=== PATIENT | female | born 1965 | race Caucasian/White ===

== ENCOUNTER 2016-03-05 15:34 | Emergency (ER) | payer OTHER ==
[~2016-03-05] VITALS: Ht 162.6 cm; Wt 70.0 kg
[~2016-03-05 15:34] MED LIST: CEPH500C3 PO; CLIN1CAP6 PO; DEPA500T3 PO; LEVA500T PO; TRAZ100T4 PO
[2016-03-05 15:36] VITALS: BP 190/90; PULSE 91; RESP 14; TEMP 97.9; O2SAT 99
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
[2016-03-06] MEDS ORDERED: ROBA500T PO (17:40)
[2016-03-06] MEDS ORDERED: NAPR500T PO (17:40)
== END 2016-03-05 18:25 | disposition left against medical advice (07) ==
LOC: NETRI 15:34
DX: M25.551 Pain in right hip (principal); E78.00 Pure hypercholesterolemia, unspecified; J44.9 Chronic obstructive pulmonary disease, unspecified; I10 Essential (primary) hypertension
CPT/HCPCS: 99283

== ENCOUNTER 2016-03-06 13:37 | Emergency (ER) | payer OTHER ==
[~2016-03-06] VITALS: Ht 162.6 cm; Wt 70.5 kg
[2016-03-06 13:40] VITALS: BP 145/87; PULSE 80; RESP 16; TEMP 98.1; O2SAT 96
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
--- NOTE | 2016-03-06 14:52 | RADRPT ---
EXAM DATE/TIME: 03/06/2016 14:42 [facility] COMPARISON: CT ABDOMEN & PELVIS W/O CONTRAST, June 18, 2014, 11:29. INDICATIONS : Right hip pain after she stepped in a hole. MEDICAL HISTORY : None. SURGICAL HISTORY : None. ENCOUNTER: Initial ACUITY: 4 - 6 days PAIN SCORE: 6/10 LOCATION: Right Hip. FINDINGS: Examination of the right hip was performed with AP Pelvis. The primary and secondary trabecular jesus ashley of the femoral neck is intact. The hip joint is of normal width without significant sclerosis or bony hypertrophy. The acetabulum is grossly intact. There are stable post traumatic changes involvi ng the left inferior pubic ramus at the site of old fracture. CONCLUSION: No evidence of right hip pathology.. Piedad Roberts MD on March 06, 2016 at 14:49 Board Certified Radiologist. This report was verified electronically.
[2016-03-06 14:56] LABS: BLOOD, URINE NEG (NEG); COMMENT (UR) CULT NOT INDICATED; CULTURE IF INDICATED CULT NOT INDICATED; GLUCOSE,URINE NEG (NEG); KETONE, URINE NEG (NEG); MUCUS URINE FEW /lpf (OCC); NITRITE,URINE NEG (NEG); PH, URINE 5.5 (5.0-8.5); SQUAMOUS EPITHELIAL CELL URINE 4 /hpf (0-5); URINE COLOR YELLOW (YELLW/STRAW)
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
[2016-03-06] MEDS ORDERED: ROBA500T PO (17:40)
[2016-03-06] MEDS ORDERED: NAPR500T PO (17:40)
[2016-03-06] MEDS ORDERED: KETOROLAC TROMETHAMINE 60 MG/2 ML (IM) VIAL IM ONE (17:45)
[2016-03-06] MEDS ORDERED: ORPHENADRINE INJ 60 MG/2 ML AMP IM ONE (17:45)
== END 2016-03-06 18:36 | disposition home or self-care (01) ==
LOC: NEPB 13:37
DX: M25.551 Pain in right hip (principal); F31.9 Bipolar disorder, unspecified; M46.96 Unspecified inflammatory spondylopathy, lumbar region; F41.8 Other specified anxiety disorders; E78.00 Pure hypercholesterolemia, unspecified; J44.9 Chronic obstructive pulmonary disease, unspecified; I10 Essential (primary) hypertension; W18.42XA Slipping, tripping and stumbling without falling due to stepping into hole or opening, initial encounter; Y93.9 Activity, unspecified; Y99.9 Unspecified external cause status
CPT/HCPCS: 73502; 81001; 96372; 99283; J1885; J2360

== ENCOUNTER 2016-07-31 17:23 | Emergency (ER) | payer OTHER ==
[~2016-07-31] VITALS: Ht 165.1 cm; Wt 68.0 kg
[~2016-07-31 17:23] MED LIST changes: -CEPH500C3 PO; -CLIN1CAP6 PO; -DEPA500T3 PO; -LEVA500T PO; +NAPR500T PO; +ROBA500T PO; -TRAZ100T4 PO
[2016-07-31 17:25] VITALS: BP 170/85; PULSE 124; RESP 20; TEMP 97.5; O2SAT 98
[2016-07-31] MEDS ORDERED: DICL75TA PO (19:34)
[2016-07-31] MEDS ORDERED: ROBA500T PO (19:34)
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
[2016-07-31] MEDS ORDERED: NAPROXEN 500 MG TAB PO ONE (19:45)
[2016-07-31] MEDS ORDERED: CYCLOBENZAPRINE HCL 10 MG TAB PO ONE (19:45)
== END 2016-07-31 20:11 | disposition home or self-care (01) ==
LOC: NEPK 17:23
DX: M54.2 Cervicalgia (principal); V49.9XXA Car occupant (driver) (passenger) injured in unspecified traffic accident, initial encounter; Y92.488 Other paved roadways as the place of occurrence of the external cause
CPT/HCPCS: 99284

== ENCOUNTER 2016-11-17 18:39 | Observation (INO) | payer BC, OTHER ==
[~2016-11-17 18:39] MED LIST changes: +DICL75TA PO
[2016-11-17 18:42] VITALS: BP 209/97; PULSE 58; RESP 15; O2SAT 98
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
[2016-11-17] MEDS ORDERED: MORPHINE SULFATE 4 MG/ML INJ IV PUSH ONE (19:30)
[2016-11-17] MEDS ORDERED: SODIUM CHLORIDE 0.9% FLUSH 10 ML FLUSH IVF PRN (19:30)
[2016-11-17] MEDS ORDERED: ONDANSETRON HCL 4 MG/2 ML VIAL IV PUSH ONE (19:30)
[2016-11-17] MEDS ORDERED: ASPIRIN 81 MG CHEW TAB PO ONE (19:30)
[2016-11-17 19:42] VITALS: BP_SYST 171; BP_SYST 181; BP_DIAS 84; BP_DIAS 93
--- NOTE | 2016-11-17 19:47 | RADRPT ---
EXAM DATE/TIME: 11/17/2016 19:26 [facility] COMPARISON: CHEST SINGLE AP, July 31, 2015, 10:31. INDICATIONS : Left side chest and arm pain MEDICAL HISTORY : Emphysema. SURGICAL HISTORY : None. ENCOUNTER: Initial ACUITY: 1 day PAIN SCORE: 3/10 LOCATION: Left chest FINDINGS: A single view of the chest demonstrates the lungs to be symmetrically aerated without evidence of mas s, infiltrate or effusion. The cardiomediastinal contours are unremarkable. Mild curvature of the t horacolumbar spine convex towards the left, stable. CONCLUSION: The lungs are clear. Josse Bower MD on November 17, 2016 at 19:45 Board Certified Radiologist. This report was verified electronically.
[2016-11-17 19:48] LABS: AUTOMATED NEUTROPHIL # 5.4 TH/MM3 (1.8-7.7); BASOPHIL % 0.2 % (0.0-2.0); EOSINOPHIL # 0.3 TH/MM3 (0-0.4); EOSINOPHIL % 2.9 % (0.0-4.0); HEMATOCRIT 39.7 % (35.0-46.0); HEMO FLAGS DIFF FINAL; LYMPH % 28.5 % (9.0-44.0); LYMPHOCYTE # 2.5 TH/MM3 (1.0-4.8); MEAN CELL VOLUME 94.8 FL (80.0-100.0); MEAN CORPUSCULAR HEMOGLOBIN 32.5 PG (27.0-34.0); MEAN CORPUSCULAR HGB CONC 34.3 % (32.0-36.0); NEUT % 61.4 % (16.0-70.0); PLATELET COUNT 292 TH/MM3 (150-450); RED BLOOD COUNT 4.19 MIL/MM3 (4.00-5.30); RED CELL DISTRIBUTION WIDTH 13.5 % (11.6-17.2); WHITE BLOOD COUNT 8.9 TH/MM3 (4.0-11.0)
[2016-11-17 20:07] LABS: ANION GAP 7 MEQ/L (5-15); BLOOD UREA NITROGEN 16 MG/DL (7-18); CHLORIDE 107 MEQ/L (98-107); CREATINE KINASE 117 U/L (26-192); GLOMERULAR FILTRATION RATE 75 ML/MIN (>89); SODIUM (NA) 139 MEQ/L (136-145)
[2016-11-17 20:09] LABS: INTERNATIONAL NORMALIZED RATIO 0.9 RATIO; PROTHROMBIN TIME - PATIENT 9.8 SEC (9.8-11.6)
[2016-11-17 20:20] LABS: CKMB 1.6 NG/ML (0.5-3.6)
[2016-11-17] MEDS ORDERED: SODIUM CHLORIDE 0.9% FLUSH 10 ML FLUSH IV FLUSH PRN (20:30)
[2016-11-17] MEDS ORDERED: SODIUM CHLORIDE 0.9% FLUSH 10 ML FLUSH IV FLUSH SCH (21:00)
[2016-11-17 21:18] VITALS: BP 127/63; PULSE 68; RESP 16
[2016-11-17 23:36] LABS: CREATINE KINASE 97 U/L (26-192)
[2016-11-17 23:43] VITALS: BP 118/74; PULSE 65; RESP 18; TEMP 98.4; O2SAT 100
[2016-11-18 00:18] VITALS: PULSE 67
[2016-11-18 01:00] VITALS: BP 130/70; PULSE 63; RESP 18; TEMP 97.5; O2SAT 98
--- NOTE | 2016-11-18 19:27 | EKG ---
Date Performed: 11/17/2016 Time Performed: 23:14:28 PTAGE: 51 years EKG: Sinus rhythm NORMAL ECG PREVIOUS TRACING : 11/17/2016 19.15 Compared to prior tracing no significant change DOCTOR: Ulisses Nicholas Interpretating Date/Time 11/18/2016 19:25:18
--- NOTE | 2016-11-18 19:33 | EKG ---
Date Performed: 11/17/2016 Time Performed: 19:15:32 PTAGE: 51 years EKG: Sinus rhythm WITH SINUS ARRHYTHMIA NORMAL ECG NO PREVIOUS TRACING DOCTOR: Ulisses Nicholas Interpretating Date/Time 11/18/2016 19:31:12
== END 2016-11-18 02:05 | disposition left against medical advice (07) ==
LOC: NEPC 18:39 → NEDA 20:27 → NEPHCDU 21:44
PROVIDERS: ADMIT Internal Medicine Interventional Cardiology; ATTEND Internal Medicine Interventional Cardiology
DX: R07.9 Chest pain, unspecified (principal); M79.602 Pain in left arm; R11.0 Nausea; Z82.49 Family history of ischemic heart disease and other diseases of the circulatory system; F31.9 Bipolar disorder, unspecified; F41.9 Anxiety disorder, unspecified; E78.00 Pure hypercholesterolemia, unspecified; J44.9 Chronic obstructive pulmonary disease, unspecified; I10 Essential (primary) hypertension; I49.8 Other specified cardiac arrhythmias
CPT/HCPCS: 71010; 80048; 82550; 82552; 83735; 84484; 85025; 85610; 85730; 93005; 96374; 96375; G0378; J2270; J2405

== ENCOUNTER 2017-05-08 16:29 | Emergency (ER) | payer SELFPAY ==
[~2017-05-08] VITALS: Ht 162.6 cm; Wt 80.0 kg
[2017-05-08 16:35] VITALS: BP 167/101; PULSE 85; RESP 17; TEMP 98.1; O2SAT 98
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
[2017-05-08] MEDS ORDERED: SODIUM CHLORIDE 0.9% FLUSH 10 ML FLUSH IVF PRN (16:45)
[2017-05-08 16:48] VITALS: BP 169/100; PULSE 85; RESP 18; TEMP 98; O2SAT 97
[2017-05-08 17:32] LABS: AUTOMATED NEUTROPHIL # 5.3 TH/MM3 (1.8-7.7); BASOPHIL # 0.1 TH/MM3 (0-0.2); EOSINOPHIL # 0.2 TH/MM3 (0-0.4); EOSINOPHIL % 2.4 % (0.0-4.0); HEMATOCRIT 39.1 % (35.0-46.0); HEMOGLOBIN 13.5 GM/DL (11.6-15.3); LYMPH % 24.4 % (9.0-44.0); MEAN CELL VOLUME 94.8 FL (80.0-100.0); MEAN CORPUSCULAR HEMOGLOBIN 32.7 PG (27.0-34.0); MEAN CORPUSCULAR HGB CONC 34.5 % (32.0-36.0); MEAN PLATELET VOLUME 8.5 FL (7.0-11.0); MONO % 6.9 % (0.0-8.0); MONOCYTE # 0.6 TH/MM3 (0-0.9); NEUT % 65.3 % (16.0-70.0); PLATELET COUNT 329 TH/MM3 (150-450); RED BLOOD COUNT 4.12 MIL/MM3 (4.00-5.30); RED CELL DISTRIBUTION WIDTH 13.8 % (11.6-17.2); WHITE BLOOD COUNT 8.1 TH/MM3 (4.0-11.0)
[2017-05-08 17:34] LABS: BILIRUBIN, URINE NEG (NEG); BLOOD, URINE NEG (NEG); GLUCOSE,URINE NEG (NEG); KETONE, URINE NEG (NEG); NITRITE,URINE NEG (NEG); SQUAMOUS EPITHELIAL CELL URINE 1 /hpf (0-5); URINE COLOR YELLOW (YELLW/STRAW); URINE LEUKOCYTE ESTERASE SMALL (NEG)
[2017-05-08 17:49] LABS: ALBUMIN 3.6 GM/DL (3.4-5.0); AST (GOT) 23 U/L (15-37); BICARBONATE 25.4 MEQ/L (21.0-32.0); BLOOD UREA NITROGEN 16 MG/DL (7-18); CALCIUM 8.6 MG/DL (8.5-10.1); CHLORIDE 105 MEQ/L (98-107); CREATININE 0.76 MG/DL (0.50-1.00); GLOMERULAR FILTRATION RATE 79 ML/MIN (>89); GLUCOSE,RANDOM 90 MG/DL (74-106); SODIUM (NA) 138 MEQ/L (136-145)
[2017-05-08 17:52] LABS: ALKALINE PHOSPHATASE 73 U/L (45-117); ALT (GPT) 28 U/L (10-53); TOTAL BILIRUBIN ADULT 0.2 MG/DL (0.2-1.0)
[2017-05-08] MEDS ORDERED: CEPH-460 PO (18:54)
[2017-05-08] MEDS ORDERED: cefTRIAXone INJ 1,000 MG in SODIUM CHLORIDE 0.9% INJ 100 ML IV ONE (19:00)
[2017-05-08] MEDS ORDERED: LISI-515 PO (19:46)
[2017-05-08 19:54] VITALS: BP 197/111
== END 2017-05-08 20:05 | disposition home or self-care (01) ==
LOC: NEPD 16:29
DX: R30.0 Dysuria (principal); Z72.0 Tobacco use
CPT/HCPCS: 80053; 81001; 85025; 87077; 87086; 87186; 96374; 99284; J0696

== ENCOUNTER 2017-07-17 07:11 | Emergency (ER) | payer OTHER ==
[~2017-07-17] VITALS: Ht 162.6 cm; Wt 77.0 kg
[~2017-07-17 07:11] MED LIST changes: +CEPH-460 PO; -DICL75TA PO; +LISI-515 PO; -NAPR500T PO; -ROBA500T PO
[2017-07-17 07:15] VITALS: BP 151/79; PULSE 93; RESP 16; TEMP 97.3; O2SAT 96
[2017-07-17] MEDS ORDERED: DEPA500T3 PO (07:30)
[2017-07-17 07:38] VITALS: BP 144/105; PULSE 89; RESP 17; TEMP 97.5; O2SAT 98
[2017-07-17] MEDS ORDERED: IBUP1TAB7 PO (07:53)
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
--- NOTE | 2017-07-17 08:35 | RADRPT ---
EXAM DATE: 07/17/2017 8:19 AM EDT AGE/SEX: 52 years / Female INDICATIONS: Anterior right pain and abrasion. Patient fell yesterday. CLINICAL DATA: This is the patient's initial encounter. Patient reports that signs and symptoms have been present for 2 days and indicates a pain score of 8/10. MEDICAL/SURGICAL HISTORY: None. None. COMPARISON: No prior [facility] exams available for comparison. FINDINGS: Bony structures are intact and in normal alignment. Joints are intact without dislocation or signifi cant arthropathy. Osseous density is normal. Soft tissues are unremarkable. No radiopaque foreign bodies seen. CONCLUSION: No acute fracture Electronically signed by: Kiaden De La Cruz MD 07/17/2017 8:33 AM EDT
[2017-07-17] MEDS ORDERED: ROBA500T PO (09:30)
== END 2017-07-17 09:55 | disposition home or self-care (01) ==
LOC: NEPD 07:11
DX: S89.91XA Unspecified injury of right lower leg, initial encounter (principal); M54.5 Low back pain; F31.9 Bipolar disorder, unspecified; W01.0XXA Fall on same level from slipping, tripping and stumbling without subsequent striking against object, initial encounter
CPT/HCPCS: 73564; 99283